=== PATIENT | female | born 1950 | race American Indian/Alaskan Native ===

== ENCOUNTER 2016-12-05 13:07 | Outpatient (CLI) | payer BC ==
--- NOTE | 2016-12-05 15:45 | Cat Scan Report ---
CT LUMBAR SPINE WITHOUT CONTRAST INDICATION: Spinal stenosis of lumbar region with radiculopathy. COMPARISON: None similar. FINDINGS: Noncontrast axial, sagittal and coronal CT reconstructions through the lumbar spine demonstrate normal vertebral body stature and alignment. Mild multilevel degenerative spurring, most at L3 and L4. Conus medullaris appears to terminate behind L1. Few aortic atherosclerotic calcifications. Normal paraspinal soft tissues. Intact imaged SI joints. On the obtained axial images: T12-L1 is unremarkable. AP thecal sac caliber is 1.5 cm. L1-L2 may suggest minimal diffuse disc bulge. No significant spinal stenosis. L2-L3 demonstrates diffuse disc bulge, greatest foraminal/lateral, including peripheral disc/annular calcification on the left, axial image 32, series 2. Bilateral neural foraminal narrowing/undercutting noted. AP thecal sac caliber approximately 0.9 cm. Preserved posterior epidural fat. L3-L4 demonstrates moderate to severe disc narrowing and mild vacuum phenomenon. Mild diffuse disc bulge suspicious for moderate spinal stenosis with AP thecal sac caliber of 0.6-0.7 cm. Bilateral neural foraminal narrowing/undercutting also seen. Mild bilateral facet spurring and possible ligamentum flavum hypertrophy. L4-L5 also demonstrates moderate to severe disc narrowing with vacuum phenomenon. Diffuse disc bulge noted, asymmetrically greatest in the right foraminal to lateral distribution. Neural foraminal narrowing/undercutting. Thecal sac not clearly visible, though approximately 0.7 cm caliber AP, axial image 54, series 2 with spinal stenosis suspected. Mild bilateral facet arthropathy. L5-S1 appears within normal limits. CONCLUSION: Lumbar spondylosis noted from L2-L3 through L4-L5 with suspected spinal stenosis, as described. Thank you for the opportunity to participate in this patient's care.
== END 2016-12-05 13:08 | disposition home or self-care (01) ==
LOC: CT 13:07
PROVIDERS: ATTEND Orthopaedic Surgery
DX: M48.06 Spinal stenosis, lumbar region (principal)
CPT/HCPCS: 72131

== ENCOUNTER 2018-12-14 18:12 | Emergency (ER) | payer MEDICARE ==
[2018-12-14 18:27] VITALS: BP 236/112
--- NOTE | 2018-12-14 18:31 | Emergency Department Report ---
Chief Complaint: Abdominal Pain Stated Complaint: LOWER ABD PAIN/BACK PAIN Time Seen by Provider: 12/14/18 18:25 - HPI History of Present Illness: pt states she has epigastric abd pain that began this afternoon (+) nausea no V/D no fever pt states she also has chronic back pain with spinal stenosis hx of intestinal obstruction x4, appendectomy, hysterectomy non drinker (+) smoker no drug use pmhx of HTN, hyperthyroid pt has a pacemaker/defibrillator recent changed her norvasc to irbesartan about a month ago, also takes hydralazine and losartan no UGARTE, no new vision changes, no numbness, weakness PCP DR. Sydnee WRAY screening note: Focused history and physical exam performed. Due to findings the following was ordered: UA, labs, CT abd pelvis ED Disposition for MSE Condition: Stable Instructions: Abdominal Pain (ED)
[2018-12-14 19:10] LABS: Basophils % (Auto) 0.5 % (0.0-1.8); Eosinophils # (Auto) 0.1 K/mm3 (0.0-0.4); Eosinophils % (Auto) 1.8 % (0.0-4.3); Hematocrit 40.1 % (30.3-42.9); Hemoglobin 13.7 gm/dl (10.1-14.3); Lymphocytes # (Auto) 1.4 K/mm3 (1.2-5.4); Lymphocytes % (Auto) 17.5 % (13.4-35.0); Mean Corpuscular HGB Conc 34 % (30-34); Mean Corpuscular Volume 94 fl (79-97); Monocytes # (Auto) 0.9 K/mm3 (0.0-0.8); Platelet Count 195 K/mm3 (140-440); Red Blood Count 4.27 M/mm3 (3.65-5.03); Red Cell Distribution Width 15.1 % (13.2-15.2)
[2018-12-14 19:30] LABS: Albumin 3.9 g/dL (3.9-5); Calcium 9.1 mg/dL (8.4-10.2)
== END 2018-12-15 | disposition left against medical advice (07) ==
LOC: ED 18:12
DX: R10.30 Lower abdominal pain, unspecified (principal); M54.9 Dorsalgia, unspecified; Z53.21 Procedure and treatment not carried out due to patient leaving prior to being seen by health care provider
CPT/HCPCS: 36415; 80053; 83690; 85025